=== PATIENT | male | born 1970 | race African-American/Black ===

== ENCOUNTER 2025-03-05 17:50 | Inpatient (IN) | payer OTHER ==
[~2025-03-05] VITALS: Ht 177.8 cm; Wt 105.3 kg
[2025-03-05 19:01] LABS: GLUCOMETER DEV NAME(LOC) ERT.7; GLUCOSE,POINT OF CARE 265 MG/DL (70-110)
[2025-03-05] MEDS: VANCOMYCIN 1.25 GM/WATER(PEG) 250 ML IV ONE (19:37)
[2025-03-05] MEDS: CEFEPIME HCL 2 GM in DEXTROSE 5%-WATER 50 ML IV ONE (19:37)
[2025-03-05 19:50] LABS: PLATELET COUNT (AUTO) 348 K/uL (150-450); RED BLOOD CELL COUNT(AUTO) 4.16 MIL/uL (4.50-5.90); RED CELL DISTRIBUTION WIDTH 15.8 % (11.5-14.5); WHITE BLOOD COUNT (AUTO) 7.6 K/uL (4.5-11.0)
[2025-03-05 19:59] LABS: CALCIUM, TOTAL 8.8 mg/dL (8.8-10.5); CREATININE 4.55 mg/dL (0.60-1.30); GLOMERULAR FILTR. RATE CALC 16.0 mL/min (>60); GLUCOSE,RANDOM 259.0 mg/dL (70-110); SODIUM SERUM 134.0 mmol/L (136-145); UREA NITROGEN, BLOOD 36.0 mg/dL (7-18)
[2025-03-05 20:08] LABS: LACTIC ACID 1.0 mmol/L (0.4-2.0)
[2025-03-05 20:17] LABS: ASPARTATE AMINOTRANSFERASE 19 U/L (15-37); C-REACTIVE PROTEIN QUANT 4.53 mg/dL (0.00-0.30); TOTAL PROTEIN, SERUM 7.9 g/dL (6.4-8.2)
[2025-03-05 20:28] LABS: ERYTHROCYTE SEDIMENTATION RATE 67 MM/HR (0-20)
[2025-03-05] MEDS: PIPERACILLIN SODIUM/TAZOBACTAM 2.25 GM in DEXTROSE 5%-WATER 50 ML IV SCH (22:24)
[2025-03-05] MEDS: VANCOMYCIN 1GM/WATER(PEG/NADA) 200 ML IV PRN (22:25)
[2025-03-05] MEDS ORDERED: DEXTROSE 50%-WATER 25 GM/50 ML SYRINGE IVP PRN (22:45)
[2025-03-06] MEDS: SODIUM CHLORIDE 0.9% 1,000 ML IV SCH
[2025-03-06] MEDS: SODIUM CHLORIDE 0.9% 250 ML IV ONE
[2025-03-06] MEDS: INSULIN GLARGINE,HUM.REC.ANLOG 100 UNITS/ML SQ SCH (00:01)
[2025-03-06 00:59] VITALS: BP 134/66; PULSE 61; RESP 18; TEMP 98.1; O2SAT 97
[2025-03-06 02:05] LABS: GLUCOMETER DEV NAME(LOC) 6S.2; GLUCOSE,POINT OF CARE 266 MG/DL (70-110)
[2025-03-06 04:55] VITALS: BP 134/74; PULSE 78; RESP 18; TEMP 97.9; O2SAT 99
[2025-03-06] MEDS: INSULIN LISPRO 100 UNITS/ML SQ PRN (06:46)
[2025-03-06 06:58] LABS: PLATELET COUNT (AUTO) 352 K/uL (150-450); RED BLOOD CELL COUNT(AUTO) 4.35 MIL/uL (4.50-5.90); RED CELL DISTRIBUTION WIDTH 15.9 % (11.5-14.5); WHITE BLOOD COUNT (AUTO) 6.0 K/uL (4.5-11.0)
[2025-03-06 07:12] LABS: CALCIUM, TOTAL 8.9 mg/dL (8.8-10.5); CREATININE 4.17 mg/dL (0.60-1.30); GLOMERULAR FILTR. RATE CALC 18.0 mL/min (>60); GLUCOSE,RANDOM 137.0 mg/dL (70-110); SODIUM SERUM 137.0 mmol/L (136-145); UREA NITROGEN, BLOOD 33.0 mg/dL (7-18)
[2025-03-06 08:13] VITALS: BP 140/75; PULSE 85; RESP 18; TEMP 97.8; O2SAT 96
[2025-03-06 08:15] LABS: GLUCOMETER DEV NAME(LOC) 6S.2; GLUCOSE,POINT OF CARE 148 MG/DL (70-110)
[2025-03-06 13:15] LABS: GLUCOMETER DEV NAME(LOC) 6S.2; GLUCOSE,POINT OF CARE 214 MG/DL (70-110)
[2025-03-06] MEDS ORDERED: TIRZ7.5P3 SQ (17:18)
[2025-03-06] MEDS ORDERED: SULF-261 PO (17:18)
[2025-03-06] MEDS ORDERED: ACET-2247 PO (17:18)
[2025-03-06] MEDS ORDERED: SODI45SP10 NASAL (17:18)
[2025-03-06] MEDS ORDERED: NYST15PO3 TP (17:18)
[2025-03-06] MEDS ORDERED: TAMS0.4C94 PO (17:33)
[2025-03-06] MEDS ORDERED: UREA85CR TP (17:33)
[2025-03-06] MEDS ORDERED: CHOL25TA4 PO (17:33)
[2025-03-06] MEDS ORDERED: DOCU-385 PO (17:33)
[2025-03-06] MEDS ORDERED: ATOR20TA PO (17:33)
[2025-03-06] MEDS ORDERED: LIDO1ADH83 TP (17:33)
[2025-03-06] MEDS ORDERED: PREDAOS OU (17:33)
[2025-03-06] MEDS ORDERED: AMLO-257 PO (17:33)
[2025-03-06] MEDS ORDERED: EMPA25TA3 PO (17:33)
[2025-03-06] MEDS ORDERED: BETA15OI30 TP (17:33)
[2025-03-06] MEDS ORDERED: VITA113O4 TP (17:33)
[2025-03-06 20:20] VITALS: BP 136/71; PULSE 89; RESP 18; TEMP 99.5; O2SAT 97
[2025-03-07 05:34] VITALS: BP 125/69; PULSE 85; RESP 18; TEMP 98.5; O2SAT 99
[2025-03-07 07:51] LABS: GLUCOMETER DEV NAME(LOC) 6S.2; GLUCOSE,POINT OF CARE 170 MG/DL (70-110)
[2025-03-07 07:51] LABS: GLUCOMETER DEV NAME(LOC) 6S.1D; GLUCOSE,POINT OF CARE 124 MG/DL (70-110)
[2025-03-07 07:51] LABS: GLUCOMETER DEV NAME(LOC) 6S.2; GLUCOSE,POINT OF CARE 254 MG/DL (70-110)
[2025-03-07 07:53] LABS: CALCIUM, TOTAL 8.7 mg/dL (8.8-10.5); CREATININE 3.86 mg/dL (0.60-1.30); GLOMERULAR FILTR. RATE CALC 20.0 mL/min (>60); GLUCOSE,RANDOM 129.0 mg/dL (70-110); SODIUM SERUM 139.0 mmol/L (136-145); UREA NITROGEN, BLOOD 39.0 mg/dL (7-18)
[2025-03-07 09:39] VITALS: BP 122/65; PULSE 77; RESP 19; TEMP 98.3; O2SAT 99
[2025-03-07] MEDS: VITAMINS A & D 113 GM OINTMENT TP SCH (17:15)
[2025-03-07] MEDS ORDERED: DOCUSATE SODIUM 100 MG CAPSULE PO PRN (17:15)
[2025-03-07 18:05] LABS: GLUCOMETER DEV NAME(LOC) 6S.2; GLUCOSE,POINT OF CARE 313 MG/DL (70-110)
[2025-03-07] MEDS: TAMSULOSIN HCL 0.4 MG CAPSULE PO SCH (18:36)
[2025-03-07] MEDS: CHOLECALCIFEROL (VIT D3) 1,000 UNITS [25 MCG] TABLET PO SCH (18:36)
[2025-03-07] MEDS: EMPAGLIFLOZIN 25 MG TABLET PO SCH (18:37)
[2025-03-07 19:25] VITALS: BP 133/78; PULSE 86; RESP 18; TEMP 98.8; O2SAT 96
[2025-03-07 19:50] LABS: GLUCOMETER DEV NAME(LOC) 6S.1D; GLUCOSE,POINT OF CARE 313 MG/DL (70-110)
[2025-03-07] MEDS: ATORVASTATIN CALCIUM 20 MG TABLET PO SCH (20:48)
[2025-03-07] MEDS: PrednisoLONE ACETATE 1% 5 ML OPHTHALMIC SUSPENSION OU SCH (20:49)
[2025-03-07] MEDS: NYSTATIN 15 GM POWDER BOTTLE TP SCH (20:52)
[2025-03-07] MEDS: BETAMETHASONE DIP 0.05% 15 GM OINTMENT TP SCH (20:52)
[2025-03-07] MEDS: UREA 40% TP SCH (20:52)
[2025-03-07] MEDS ORDERED: SULFAMETHOX/TRIMETH DS 800-160 MG/TABLET PO SCH (21:00)
[2025-03-08 04:36] VITALS: BP 123/73; PULSE 89; RESP 18; TEMP 98.1; O2SAT 96
[2025-03-08 07:37] LABS: CALCIUM, TOTAL 9.1 mg/dL (8.8-10.5); CREATININE 3.72 mg/dL (0.60-1.30); GLOMERULAR FILTR. RATE CALC 21.0 mL/min (>60); GLUCOSE,RANDOM 263.0 mg/dL (70-110); SODIUM SERUM 137.0 mmol/L (136-145); UREA NITROGEN, BLOOD 52.0 mg/dL (7-18)
[2025-03-08 07:42] LABS: PHOSPHORUS 3.0 mg/dL (2.5-4.9)
[2025-03-08 08:52] VITALS: BP 117/75; PULSE 90; RESP 18; TEMP 97.7; O2SAT 98
[2025-03-08] MEDS ORDERED: MISC MED-CONVERTED FROM AMBULATORY (Lidocaine 1 PATCH) TP SCH (09:00)
[2025-03-08] MEDS: SODIUM CHLORIDE 0.65% 44 ML NASAL SPRAY NASAL SCH (09:12)
[2025-03-08 10:43] LABS: APPEARANCE,URINE CLEAR (CLEAR); GLUCOSE, URINE (UA) >=1000 mg/dL (NEGATIVE); LEUKOCYTE ESTERASE ,URINE NEGATIVE (NEGATIVE); NITRATE,URINE NEGATIVE (NEGATIVE); OCCULT BLOOD,URINE NEGATIVE (NEGATIVE); SPECIFIC GRAVITIY, URINE 1.014 (1.003-1.030)
[2025-03-08] MEDS: SODIUM CHLORIDE 0.45% 1,000 ML IV SCH (15:55)
[2025-03-08 18:21] LABS: GLUCOMETER DEV NAME(LOC) 6S.2; GLUCOSE,POINT OF CARE 411 MG/DL (70-110)
[2025-03-08 18:21] LABS: GLUCOMETER DEV NAME(LOC) 6S.2; GLUCOSE,POINT OF CARE 314 MG/DL (70-110)
[2025-03-08 18:21] LABS: GLUCOMETER DEV NAME(LOC) 6S.2; GLUCOSE,POINT OF CARE 319 MG/DL (70-110)
[2025-03-08 18:21] LABS: GLUCOMETER DEV NAME(LOC) 6S.2; GLUCOSE,POINT OF CARE 269 MG/DL (70-110)
[2025-03-08 19:50] VITALS: BP 133/78; PULSE 92; RESP 18; TEMP 97.9; O2SAT 95
[2025-03-08] MEDS: INSULIN GLARGINE,HUM.REC.ANLOG 100 UNITS/ML SQ SCH (20:39)
[2025-03-08] MEDS: INSULIN LISPRO 100 UNITS/ML SQ PRN (20:58)
[2025-03-09 04:46] VITALS: BP 139/72; PULSE 82; RESP 18; TEMP 97.9; O2SAT 96
[2025-03-09 06:50] LABS: CALCIUM, TOTAL 9.2 mg/dL (8.8-10.5); CREATININE 3.64 mg/dL (0.60-1.30); GLOMERULAR FILTR. RATE CALC 21.0 mL/min (>60); GLUCOSE,RANDOM 72.0 mg/dL (70-110); SODIUM SERUM 140.0 mmol/L (136-145); UREA NITROGEN, BLOOD 50.0 mg/dL (7-18)
[2025-03-09 06:56] LABS: PHOSPHORUS 3.7 mg/dL (2.5-4.9)
[2025-03-09 07:36] LABS: GLUCOMETER DEV NAME(LOC) 6N.2C; GLUCOSE,POINT OF CARE 301 MG/DL (70-110)
[2025-03-09 07:36] LABS: GLUCOMETER DEV NAME(LOC) 6S.2; GLUCOSE,POINT OF CARE 95 MG/DL (70-110)
[2025-03-09 08:21] VITALS: BP 128/83; PULSE 85; RESP 18; TEMP 98.1; O2SAT 97
[2025-03-09 08:39] VITALS: BP 137/65; PULSE 78; RESP 20; TEMP 97.8; O2SAT 98
[2025-03-09] MEDS ORDERED: 0.9% SODIUM CHLORIDE 10 ML SYRINGE IVP PRN (12:30)
[2025-03-09] MEDS: LIDOCAINE 1% 10 ML VIAL SQ ONE (13:15)
[2025-03-09 20:00] LABS: GLUCOMETER DEV NAME(LOC) 6S.2; GLUCOSE,POINT OF CARE 253 MG/DL (70-110)
[2025-03-09 20:05] LABS: GLUCOMETER DEV NAME(LOC) 6N.2C; GLUCOSE,POINT OF CARE 185 MG/DL (70-110)
[2025-03-09 21:00] VITALS: BP 138/87; PULSE 81; RESP 18; TEMP 98.2; O2SAT 98
[2025-03-10 05:25] LABS: GLUCOMETER DEV NAME(LOC) 6S.1D; GLUCOSE,POINT OF CARE 123 MG/DL (70-110)
[2025-03-10 06:45] LABS: GLUCOMETER DEV NAME(LOC) 6S.1D; GLUCOSE,POINT OF CARE 206 MG/DL (70-110)
[2025-03-10 07:59] VITALS: BP 123/73; PULSE 79; RESP 18; TEMP 98.1; O2SAT 99
[2025-03-10 12:20] LABS: GLUCOMETER DEV NAME(LOC) 6S.1D; GLUCOSE,POINT OF CARE 116 MG/DL (70-110)
[2025-03-10 16:01] VITALS: BP 134/92; PULSE 84; RESP 18; TEMP 98.4; O2SAT 97
[2025-03-10 18:46] LABS: GLUCOMETER DEV NAME(LOC) 6S.2; GLUCOSE,POINT OF CARE 182 MG/DL (70-110)
[2025-03-10 20:00] VITALS: BP 136/79; PULSE 84; RESP 18; TEMP 98.6; O2SAT 99
[2025-03-10 23:05] LABS: GLUCOMETER DEV NAME(LOC) 6S.2; GLUCOSE,POINT OF CARE 299 MG/DL (70-110)
[2025-03-11 05:43] VITALS: BP 122/71; PULSE 81; RESP 18; TEMP 98.4; O2SAT 100
[2025-03-11 07:05] LABS: GLUCOMETER DEV NAME(LOC) 6S.2; GLUCOSE,POINT OF CARE 170 MG/DL (70-110)
[2025-03-11 07:32] VITALS: BP 110/78; PULSE 87; RESP 18; TEMP 97.5; O2SAT 98
[2025-03-11] MEDS: ACETAMINOPHEN 325 MG TABLET PO PRN (11:50)
[2025-03-11] MEDS: LIDOCAINE 5% TRANSDERMAL PATCH TD SCH (13:54)
[2025-03-11 17:21] LABS: GLUCOMETER DEV NAME(LOC) 6S.2; GLUCOSE,POINT OF CARE 98 MG/DL (70-110)
[2025-03-11 18:00] LABS: GLUCOMETER DEV NAME(LOC) 6N.2C; GLUCOSE,POINT OF CARE 266 MG/DL (70-110)
[2025-03-11 19:26] VITALS: BP 128/72; PULSE 82; RESP 18; TEMP 98.1; O2SAT 98
[2025-03-11] MEDS: -LIDODERM PATCH NOTE- MISC SCH (21:09)
[2025-03-12 04:49] VITALS: BP 135/78; PULSE 73; RESP 18; TEMP 98.4; O2SAT 99
[2025-03-12 06:30] LABS: GLUCOMETER DEV NAME(LOC) 6S.2; GLUCOSE,POINT OF CARE 258 MG/DL (70-110)
[2025-03-12 07:06] LABS: CALCIUM, TOTAL 8.8 mg/dL (8.8-10.5); CREATININE 2.96 mg/dL (0.60-1.30); GLOMERULAR FILTR. RATE CALC 27.0 mL/min (>60); GLUCOSE,RANDOM 134.0 mg/dL (70-110); SODIUM SERUM 138.0 mmol/L (136-145); UREA NITROGEN, BLOOD 39.0 mg/dL (7-18)
[2025-03-12 08:16] LABS: GLUCOMETER DEV NAME(LOC) 6N.2C; GLUCOSE,POINT OF CARE 200 MG/DL (70-110)
[2025-03-12 08:29] VITALS: BP 136/81; PULSE 75; RESP 18; TEMP 98; O2SAT 99
[2025-03-12] MEDS: POTASSIUM CHLORIDE 20 MEQ ER TABLET PO ONE (10:18)
[2025-03-12 11:55] LABS: GLUCOMETER DEV NAME(LOC) 6S.1D; GLUCOSE,POINT OF CARE 167 MG/DL (70-110)
[2025-03-12 19:56] VITALS: BP 156/83; PULSE 79; RESP 18; TEMP 98.8; O2SAT 99
[2025-03-12 20:00] LABS: GLUCOMETER DEV NAME(LOC) 6S.1D; GLUCOSE,POINT OF CARE 163 MG/DL (70-110)
[2025-03-12 20:55] LABS: GLUCOMETER DEV NAME(LOC) 6S.1D; GLUCOSE,POINT OF CARE 224 MG/DL (70-110)
[2025-03-13 04:40] VITALS: BP 139/81; PULSE 76; RESP 19; TEMP 98.1; O2SAT 98
[2025-03-13 06:51] LABS: CALCIUM, TOTAL 8.7 mg/dL (8.8-10.5); CREATININE 2.93 mg/dL (0.60-1.30); GLOMERULAR FILTR. RATE CALC 27.0 mL/min (>60); GLUCOSE,RANDOM 90.0 mg/dL (70-110); SODIUM SERUM 141.0 mmol/L (136-145); UREA NITROGEN, BLOOD 36.0 mg/dL (7-18)
[2025-03-13 07:16] LABS: GLUCOMETER DEV NAME(LOC) 6N.2C; GLUCOSE,POINT OF CARE 95 MG/DL (70-110)
[2025-03-13 08:11] VITALS: BP 143/90; PULSE 75; RESP 20; TEMP 97.9; O2SAT 98
[2025-03-13] MEDS ORDERED: RINGERS SOLUTION,LACTATED 1,000 ML IV ONE (09:19)
[2025-03-13 10:12] LABS: PLATELET COUNT (AUTO) 384 K/uL (150-450); RED BLOOD CELL COUNT(AUTO) 4.57 MIL/uL (4.50-5.90); RED CELL DISTRIBUTION WIDTH 16.5 % (11.5-14.5); WHITE BLOOD COUNT (AUTO) 5.0 K/uL (4.5-11.0)
[2025-03-13] MEDS ORDERED: BACITRACIN 28 GM OINTMENT TP ONE (11:25)
[2025-03-13] MEDS ORDERED: BUPIVACAINE HCL/PF 0.25% 30 ML VIAL ONE (11:25)
[2025-03-13] MEDS ORDERED: LIDOCAINE/PF 2% 5 ML VIAL ONE ×2 (11:26→18:00)
[2025-03-13] MEDS: RINGERS SOLUTION,LACTATED 1,000 ML IV ONE (11:34)
[2025-03-13] MEDS: ETHYL ALCOHOL 62% ANTISEPTIC NASAL SANITIZER 0.6 ML AMPUL NASAL ONE (11:35)
[2025-03-13] MEDS: CHLORHEXIDINE GLUCONATE 2% TOWELETTE [2'S/6'S] TP ONE (11:35)
[2025-03-13] MEDS: BUPIVACAINE HCL/PF 0.5% 30 ML VIAL ONE (12:25)
[2025-03-13] MEDS ORDERED: PROPOFOL 1% ISO-OSM 1000 MG/100 ML BOTTLE ONE (18:00)
[2025-03-13] MEDS ORDERED: PROPOFOL 1% 20 ML VIAL IVP ONE (18:00)
[2025-03-13] MEDS ORDERED: GLYCOPYRROLATE 0.2 MG/ML VIAL ONE (18:00)
[2025-03-13] MEDS ORDERED: KETOROLAC TROMETHAMINE 60 MG/2 ML VIAL IM ONE (18:00)
[2025-03-13 21:01] VITALS: BP 136/87; PULSE 77; RESP 20; TEMP 98.1; O2SAT 100
[2025-03-14 03:21] LABS: GLUCOMETER DEV NAME(LOC) 6S.1D; GLUCOSE,POINT OF CARE 156 MG/DL (70-110)
[2025-03-14 05:16] VITALS: BP 144/90; PULSE 94; RESP 18; TEMP 98.1; O2SAT 99
[2025-03-14 06:39] LABS: PLATELET COUNT (AUTO) 342 K/uL (150-450); RED BLOOD CELL COUNT(AUTO) 4.58 MIL/uL (4.50-5.90); RED CELL DISTRIBUTION WIDTH 17.1 % (11.5-14.5); WHITE BLOOD COUNT (AUTO) 6.8 K/uL (4.5-11.0)
[2025-03-14 07:01] LABS: GLUCOMETER DEV NAME(LOC) 6S.1D; GLUCOSE,POINT OF CARE 160 MG/DL (70-110)
[2025-03-14 08:54] VITALS: BP 142/80; PULSE 80; RESP 18; TEMP 98.4; O2SAT 100
[2025-03-14] MEDS ORDERED: [UNRECOGNIZED DRUG - OTHER] SQ SCH (09:00)
[2025-03-14] MEDS ORDERED: FentaNYL CITRATE PF 100 MCG/2 ML VIAL IM ONE (09:17)
[2025-03-14 14:06] LABS: GLUCOMETER DEV NAME(LOC) 6N.2C; GLUCOSE,POINT OF CARE 259 MG/DL (70-110)
[2025-03-14 20:08] VITALS: BP 129/73; PULSE 89; RESP 18; TEMP 98.8; O2SAT 99
[2025-03-14 21:35] LABS: GLUCOMETER DEV NAME(LOC) 6S.2; GLUCOSE,POINT OF CARE 194 MG/DL (70-110)
[2025-03-14 21:35] LABS: GLUCOMETER DEV NAME(LOC) 6S.1D; GLUCOSE,POINT OF CARE 232 MG/DL (70-110)
[2025-03-15 05:05] VITALS: BP 119/67; PULSE 77; RESP 18; TEMP 98.4; O2SAT 99
[2025-03-15 07:24] LABS: CALCIUM, TOTAL 8.5 mg/dL (8.8-10.5); CREATININE 2.95 mg/dL (0.60-1.30); GLOMERULAR FILTR. RATE CALC 27.0 mL/min (>60); GLUCOSE,RANDOM 136.0 mg/dL (70-110); SODIUM SERUM 139.0 mmol/L (136-145); UREA NITROGEN, BLOOD 30.0 mg/dL (7-18)
[2025-03-15 08:02] VITALS: BP 135/78; PULSE 81; RESP 18; TEMP 98.2; O2SAT 98
[2025-03-15] MEDS ORDERED: POTASSIUM CHLORIDE 20 MEQ ER TABLET PO ONE ×2 (10:45→11:00)
[2025-03-15] MEDS: POTASSIUM CHLORIDE 20 MEQ ER TABLET PO ONE (11:51)
[2025-03-15 13:51] LABS: GLUCOMETER DEV NAME(LOC) 6S.1D; GLUCOSE,POINT OF CARE 123 MG/DL (70-110)
[2025-03-15 20:35] VITALS: BP 149/74; PULSE 77; RESP 18; TEMP 98.2; O2SAT 97
[2025-03-16 07:30] LABS: CALCIUM, TOTAL 8.6 mg/dL (8.8-10.5); CREATININE 3.12 mg/dL (0.60-1.30); GLOMERULAR FILTR. RATE CALC 25.0 mL/min (>60); GLUCOSE,RANDOM 125.0 mg/dL (70-110); SODIUM SERUM 143.0 mmol/L (136-145); UREA NITROGEN, BLOOD 25.0 mg/dL (7-18)
[2025-03-16 07:55] LABS: GLUCOMETER DEV NAME(LOC) 6S.2; GLUCOSE,POINT OF CARE 280 MG/DL (70-110)
[2025-03-16 07:55] LABS: GLUCOMETER DEV NAME(LOC) 6S.2; GLUCOSE,POINT OF CARE 237 MG/DL (70-110)
[2025-03-16 08:00] LABS: GLUCOMETER DEV NAME(LOC) 6S.2; GLUCOSE,POINT OF CARE 141 MG/DL (70-110)
[2025-03-16 08:01] LABS: GLUCOMETER DEV NAME(LOC) 6S.2; GLUCOSE,POINT OF CARE 86 MG/DL (70-110)
[2025-03-16 08:50] VITALS: BP 122/75; PULSE 76; RESP 20; TEMP 98.1; O2SAT 99
[2025-03-16 20:15] VITALS: BP 144/80; PULSE 80; RESP 18; TEMP 98.2; O2SAT 98
[2025-03-16 21:05] LABS: GLUCOMETER DEV NAME(LOC) 6S.2; GLUCOSE,POINT OF CARE 236 MG/DL (70-110)
[2025-03-16 21:05] LABS: GLUCOMETER DEV NAME(LOC) 6S.2; GLUCOSE,POINT OF CARE 173 MG/DL (70-110)
[2025-03-17 05:15] VITALS: BP 115/72; PULSE 70; RESP 18; TEMP 97.9; O2SAT 98
[2025-03-17] MEDS: FLUCONAZOLE 200 MG/NACL ISOOSM 100 ML IV SCH (06:33)
[2025-03-17 06:55] LABS: CALCIUM, TOTAL 8.6 mg/dL (8.8-10.5); CREATININE 2.88 mg/dL (0.60-1.30); GLOMERULAR FILTR. RATE CALC 28.0 mL/min (>60); GLUCOSE,RANDOM 129.0 mg/dL (70-110); SODIUM SERUM 143.0 mmol/L (136-145); UREA NITROGEN, BLOOD 21.0 mg/dL (7-18)
[2025-03-17 08:16] LABS: GLUCOMETER DEV NAME(LOC) 6N.2C; GLUCOSE,POINT OF CARE 122 MG/DL (70-110)
[2025-03-17 08:16] LABS: GLUCOMETER DEV NAME(LOC) 6N.2C; GLUCOSE,POINT OF CARE 132 MG/DL (70-110)
[2025-03-17 08:18] VITALS: BP 140/81; PULSE 72; RESP 18; TEMP 98.2; O2SAT 98
[2025-03-17 19:46] LABS: GLUCOMETER DEV NAME(LOC) 6S.2; GLUCOSE,POINT OF CARE 129 MG/DL (70-110)
[2025-03-17 19:46] LABS: GLUCOMETER DEV NAME(LOC) 6S.2; GLUCOSE,POINT OF CARE 130 MG/DL (70-110)
[2025-03-17 20:30] VITALS: BP 144/80; PULSE 80; RESP 18; TEMP 98.4; O2SAT 97
[2025-03-17 20:30] LABS: GLUCOMETER DEV NAME(LOC) 6S.2; GLUCOSE,POINT OF CARE 170 MG/DL (70-110)
[2025-03-18 04:50] VITALS: BP 109/74; PULSE 78; RESP 18; TEMP 97.7; O2SAT 98
[2025-03-18 07:46] LABS: GLUCOMETER DEV NAME(LOC) 6S.2; GLUCOSE,POINT OF CARE 154 MG/DL (70-110)
[2025-03-18 08:31] VITALS: BP 135/76; PULSE 73; RESP 18; TEMP 97.9; O2SAT 99
[2025-03-18 11:40] LABS: GLUCOMETER DEV NAME(LOC) 6S.1D; GLUCOSE,POINT OF CARE 71 MG/DL (70-110)
[2025-03-18 19:50] VITALS: BP 139/80; PULSE 84; RESP 19; TEMP 98.6; O2SAT 98
[2025-03-18 19:56] LABS: GLUCOMETER DEV NAME(LOC) 6S.2; GLUCOSE,POINT OF CARE 171 MG/DL (70-110)
[2025-03-18 21:11] LABS: GLUCOMETER DEV NAME(LOC) 6S.1D; GLUCOSE,POINT OF CARE 241 MG/DL (70-110)
[2025-03-19 04:58] VITALS: BP 128/71; PULSE 71; RESP 18; TEMP 98.1; O2SAT 99
[2025-03-19 07:06] LABS: GLUCOMETER DEV NAME(LOC) 6N.2C; GLUCOSE,POINT OF CARE 184 MG/DL (70-110)
[2025-03-19 08:30] VITALS: BP 122/78; PULSE 72; RESP 18; TEMP 98.6; O2SAT 100
[2025-03-19] MEDS ORDERED: SODIUM CHLORIDE 0.9% 0 ML IV ONE (10:19)
[2025-03-19] MEDS ORDERED: LIDO-57 TP (11:19)
[2025-03-19] MEDS ORDERED: FLUC100T68 PO (11:23)
[2025-03-19] MEDS ORDERED: INSLAN SQ (11:25)
[2025-03-19] MEDS ORDERED: PIPE2.2562 IV (11:26)
[2025-03-19] MEDS ORDERED: INSU100V SQ (11:36)
[2025-03-19 12:46] LABS: GLUCOMETER DEV NAME(LOC) 6S.1D; GLUCOSE,POINT OF CARE 151 MG/DL (70-110)
[2025-03-19] MEDS: POVIDONE-IODINE 10% 15 ML SOLUTION UD TP ONE (14:19)
== END 2025-03-19 16:40 | DRG 629 ==
LOC: EMS 17:50 → EDH 18:52 → 6S 03-06 00:55
PROVIDERS: ADMIT Internal Medicine; ATTEND Internal Medicine
PROC: 05HB33Z Insertion of Infusion Device into Right Basilic Vein, Percutaneous Approach (ICD-10-PCS; 2025-03-10)
PROC: B54MZZA Ultrasonography of Right Upper Extremity Veins, Guidance (ICD-10-PCS; 2025-03-10)
PROC: 0QBN0ZZ Excision of Right Metatarsal, Open Approach (ICD-10-PCS; principal; 2025-03-13 12:00)
DX: E11.69 Type 2 diabetes mellitus with other specified complication (principal); E11.52 Type 2 diabetes mellitus with diabetic peripheral angiopathy with gangrene; M86.171 Other acute osteomyelitis, right ankle and foot; T81.30XA Disruption of wound, unspecified, initial encounter; N17.0 Acute kidney failure with tubular necrosis; N18.4 Chronic kidney disease, stage 4 (severe); E11.21 Type 2 diabetes mellitus with diabetic nephropathy; E11.65 Type 2 diabetes mellitus with hyperglycemia; E11.22 Type 2 diabetes mellitus with diabetic chronic kidney disease; I12.9 Hypertensive chronic kidney disease with stage 1 through stage 4 chronic kidney disease, or unspecified chronic kidney disease; N32.9 Bladder disorder, unspecified; N28.9 Disorder of kidney and ureter, unspecified; E78.5 Hyperlipidemia, unspecified; N18.30 Chronic kidney disease, stage 3 unspecified; I99.9 Unspecified disorder of circulatory system; Y83.8 Other surgical procedures as the cause of abnormal reaction of the patient, or of later complication, without mention of misadventure at the time of the procedure; E11.40 Type 2 diabetes mellitus with diabetic neuropathy, unspecified; E87.6 Hypokalemia; Z91.199 Patient's noncompliance with other medical treatment and regimen due to unspecified reason; Z63.4 Disappearance and death of family member; Z79.85 Long-term (current) use of injectable non-insulin antidiabetic drugs; Z79.899 Other long term (current) drug therapy; Z87.891 Personal history of nicotine dependence; Y92.89 Other specified places as the place of occurrence of the external cause; Z93.3 Colostomy status
CPT/HCPCS: 36245; 36569; 73718; 76770; 76937; 80048; 80076; 80202; 81001; 82962; 83036; 83605; 83735; 84100; 85025; 85651; 86140; 87040; 87070; 87075; 87081; 87205; 88108; 88305; 88311; 93925; 99285; G0378; J0692; J1450; J1815; J1885; J2543; J2704; J3010; J3490; J7030; J7040; J7060; J7120